=== PATIENT | male | born 1940 | race Native Hawaiian/Other Pacific Islander ===

== ENCOUNTER 2021-12-10 16:50 | Inpatient (IN) | payer OTHER ==
[~2021-12-10] VITALS: Ht 180.3 cm; Wt 72.8 kg
[2021-12-10 18:37] VITALS: BP 101/64; TEMP 98.3; Ht 180.3 cm; Wt 72.8 kg
[2021-12-10 18:50] LABS: PLATELET COUNT 230 K/uL (142-355)
[2021-12-10 19:33] LABS: POTASSIUM 3.5 mmol/L (3.6-5.2)
[2021-12-10 20:00] VITALS: BP 127/72; BP 127/76; TEMP 97.6
[2021-12-11 07:08] LABS: PLATELET COUNT 231 K/uL (142-355)
[2021-12-11 07:20] LABS: POTASSIUM 3.5 mmol/L (3.6-5.2)
[2021-12-11 20:00] VITALS: BP 137/76; TEMP 98.6
[2021-12-12 08:00] VITALS: BP 101/69; TEMP 97.9
[2021-12-12 20:00] VITALS: BP 113/64; TEMP 98.4
[2021-12-13 08:10] VITALS: BP 117/61; TEMP 98.3
[2021-12-13 20:00] VITALS: BP 137/74; TEMP 97.1
== END 2021-12-14 15:20 | disposition home health service (06) | DRG 57 ==
LOC: MED/SURG 16:50
PROVIDERS: ADMIT Family Medicine; ATTEND Family Medicine
DX: G30.8 Other Alzheimer's disease (principal); F02.81 Dementia in other diseases classified elsewhere, unspecified severity, with behavioral disturbance; N17.8 Other acute kidney failure; Z87.891 Personal history of nicotine dependence; I10 Essential (primary) hypertension; E78.49 Other hyperlipidemia; R63.0 Anorexia; E86.0 Dehydration; E11.65 Type 2 diabetes mellitus with hyperglycemia; Z68.22 Body mass index [BMI] 22.0-22.9, adult
CPT/HCPCS: 80053; 81002; 81015; 83735; 84100; 85027; 87635; J1200; J2060; J2250; J3486; U0003